=== PATIENT | female | born 1985 | race Hispanic/Latino ===

== ENCOUNTER 2021-02-12 01:22 | Emergency (ER) | payer OTHER ==
[2021-02-12 01:32] VITALS: BP 124/77
[2021-02-12 02:15] LABS: Basophils % (Auto) 0.2 % (0.0-1.8); Eosinophils # (Auto) 0.1 K/mm3 (0.0-0.4); Eosinophils % (Auto) 0.4 % (0.0-4.3); Hematocrit 45.3 % (30.3-42.9); Hemoglobin 15.8 gm/dl (10.1-14.3); Lymphocytes # (Auto) 1.2 K/mm3 (1.2-5.4); Lymphocytes % (Auto) 5.9 % (13.4-35.0); Mean Corpuscular HGB Conc 35 % (30-34); Mean Corpuscular Volume 89 fl (79-97); Monocytes # (Auto) 0.8 K/mm3 (0.0-0.8); Monocytes % (Auto) 4.2 % (0.0-7.3); Platelet Count 211 K/mm3 (140-440); Red Blood Count 5.06 M/mm3 (3.65-5.03); Red Cell Distribution Width 13.4 % (13.2-15.2)
[2021-02-12 02:27] LABS: BUN/Creatinine Ratio 16; Blood Urea Nitrogen 11 mg/dL (7-17); Calcium 10.5 mg/dL (8.4-10.2); Hemolysis Index 9
[2021-02-12] MEDS ORDERED: ONDANSETRON 4 MG/2 ML INJ IV ONE (03:29)
[2021-02-12] MEDS ORDERED: SODIUM CHLORIDE 0.9% 1000 ML 1,000 ML IV ONE (03:29)
[2021-02-12] MEDS ORDERED: FAMOTIDINE 20 MG/2 ML INJ IV ONE (03:35)
[2021-02-12] MEDS ORDERED: MORPHINE 4 MG/1 ML INJ IV ONE (03:35)
--- NOTE | 2021-02-12 04:00 | XRay Report ---
CHEST 1 VIEW INDICATION / CLINICAL INFORMATION: Chest pain. FINDINGS: SUPPORT DEVICES: None. HEART / MEDIASTINUM: No significant abnormality. LUNGS / PLEURA: No significant pulmonary or pleural abnormality. No pneumothorax. ADDITIONAL FINDINGS: No significant additional findings. IMPRESSION: 1. No acute findings. Signer Name: Tin Leahy MD Signed: 02/12/2021 3:56 AM Workstation Name: [id number]
[2021-02-12 04:33] LABS: Alanine Aminotransferase < 5 units/L (7-56); Albumin < 0.2 g/dL (3.9-5); Bilirubin,Direct < 0.2 mg/dL (0-0.2)
--- NOTE | 2021-02-12 05:19 | Emergency Department Report ---
ED N/V/D HPI - General Chief complaint: Dizziness Stated complaint: SOB,VOMITING,DIZZINESS,HEART RACING Source: patient Mode of arrival: Ambulatory Limitations: No Limitations - History of Present Illness Initial comments: Patient is a 35-year-old white female with no past medical history presents to the ED with complaint of acute onset persistent intractable nausea and vomiting and diffuse abdominal pain for over 12 hours. Patient states that the last meal she ate was from a restaurant about 24 hours ago. Patient states that in the last 12 hours she has not been able to keep anything down because of intractable nausea and vomiting and worsening pain. Patient states that she also felt lightheaded with a headache and felt that her heart was also racing. Patient also complains of sore throat and burning chest pain after multiple vomiting episodes. Patient denies diarrhea, dysuria, urinary frequency and urgency, chest pain, shortness of breath, dizziness, syncope, palpitations, change in vision, vaginal bleeding, vaginal discharge, low back pain, fever and chills. MD complaint: nausea, vomiting, abdominal pain (Diffuse) -: Sudden, hour(s) (>12) Description of Vomiting: food contents, watery Associated Abdominal Pain: Yes (Diffuse) Location: diffuse Radiation: none Severity: severe Pain Scale: 7 Quality: cramping, aching, sharp Consistency: constant Improves with: none Worsens with: eating, vomiting Context: possible food poisoning Associated Symptoms: denies other symptoms, myalgias, headaches, loss of appetite, malaise, nausea/vomiting, other (Lightheadedness). denies: chest pain, cough, diaphoresis, fever/chills, rash, dysuria, shortness of breath, syncope, weakness - Related Data Previous Rx's Medication Instructions Recorded Last Taken Type Dicyclomine [Bentyl] 20 mg PO Q6H PRN #30 tablet 02/12/21 Unknown Rx Famotidine [Pepcid] 20 mg PO BID #40 tablet 02/12/21 Unknown Rx Ondansetron [Zofran Odt] 4 mg PO Q6HR PRN #20 tab.rapdis 02/12/21 Unknown Rx Allergies Allergy/AdvReac Type Severity Reaction Status Date / Time No Known Allergies Allergy Unverified 02/12/21 01:48 ED Review of Systems ROS: Stated complaint: SOB,VOMITING,DIZZINESS,HEART RACING Other details as noted in HPI Constitutional: malaise, weakness. denies: chills, fever Eyes: denies: eye pain, eye discharge, vision change ENT: denies: ear pain, throat pain Respiratory: denies: cough, shortness of breath, wheezing Cardiovascular: denies: chest pain, palpitations Endocrine: no symptoms reported Gastrointestinal: abdominal pain, nausea, vomiting. denies: diarrhea Genitourinary: denies: urgency, dysuria, discharge Musculoskeletal: denies: back pain, joint swelling, arthralgia Skin: denies: rash, lesions Neurological: denies: headache, weakness, paresthesias Psychiatric: anxiety. denies: depression Hematological/Lymphatic: denies: easy bleeding, easy bruising ED Past Medical Hx - Past Medical History Previous Medical History?: No - Surgical History Past Surgical History?: Yes Additional Surgical History: Right Knee - Social History Smoking Status: Never Smoker Substance Use Type: None - Medications Home Medications: Home Medications Medication Instructions Recorded Confirmed Last Taken Type Dicyclomine [Bentyl] 20 mg PO Q6H PRN #30 tablet 02/12/21 Unknown Rx Famotidine [Pepcid] 20 mg PO BID #40 tablet 02/12/21 Unknown Rx Ondansetron [Zofran Odt] 4 mg PO Q6HR PRN #20 tab.rapdis 02/12/21 Unknown Rx ED Physical Exam - General Limitations: No Limitations General appearance: alert, in no apparent distress - Head Head exam: Present: atraumatic, normocephalic, normal inspection - Eye Eye exam: Present: normal appearance, PERRL, EOMI Pupils: Present: normal accommodation - ENT ENT exam: Present: normal exam, normal orophraynx, mucous membranes moist, TM's normal bilaterally, normal external ear exam - Neck Neck exam: Present: normal inspection, full ROM - Respiratory Respiratory exam: Present: normal lung sounds bilaterally. Absent: respiratory distress, wheezes, rales, rhonchi, chest wall tenderness, accessory muscle use, decreased breath sounds, prolonged expiratory - Cardiovascular Cardiovascular Exam: Present: normal rhythm, tachycardia, normal heart sounds. Absent: systolic murmur, diastolic murmur, rubs, gallop - GI/Abdominal GI/Abdominal exam: Present: soft, tenderness (Palpable diffuse abdominal tenderness), normal bowel sounds. Absent: guarding, rebound, hyperactive bowel sounds, hypoactive bowel sounds, organomegaly, mass - Bi-manual exam: Present: other (Pelvic exam deferred at this time) - Extremities Exam Extremities exam: Present: normal inspection, full ROM, normal capillary refill. Absent: tenderness, joint swelling - Back Exam Back exam: Present: normal inspection, full ROM. Absent: tenderness, CVA tenderness (R), CVA tenderness (L), muscle spasm, paraspinal tenderness, vertebral tenderness - Neurological Exam Neurological exam: Present: alert, oriented X3, CN II-XII intact, normal gait, reflexes normal - Psychiatric Psychiatric exam: Present: normal affect, normal mood, anxious - Skin Skin exam: Present: warm, dry, intact, normal color. Absent: rash ED Course Vital Signs 02/12/21 02/12/21 02/12/21 01:30 03:52 05:31 Temperature 98.3 F 99.0 F Pulse Rate 121 H 64 Respiratory 12 18 16 Rate Blood Pressure 124/77 O2 Sat by Pulse 98 100 Oximetry ED Medical Decision Making - Lab Data Result diagrams: 02/12/21 01:57 02/12/21 01:57 - Radiology Data Radiology results: report reviewed, image reviewed [facility] [address] [place] [address] Cat Scan Report Signed Patient: RYAN COULTER MR#: [id number] : 1985 Acct:[id number] Age/Sex: 35 / F ADM Date: 02/12/21 Loc: ED Attending Dr: Ordering Physician: WEST NIELSEN Date of Service: 02/12/21 Procedure(s): CT abdomen pelvis w con Accession Number(s): [id number] cc: WEST NIELSEN CT ABDOMEN AND PELVIS WITH IV CONTRAST INDICATION: Abdominal pain, nausea, vomiting. COMPARISON: None available. TECHNIQUE: Axial CT images were obtained through the abdomen and pelvis after 100 mL IV contrast. All CT scans at this location are performed using CT dose reduction for ALARA by means of automated exposure control. FINDINGS -- ABDOMEN: Lung Bases: No acute abnormality. Liver: Normal. Gallbladder: Normal. Bile Ducts: Normal. Pancreas: Normal. Spleen: Normal. Adrenals: Normal. Right Kidney and Proximal Ureter: Normal. Left Kidney and Proximal Ureter: Normal. Stomach and Bowel: Normal. Lymph Nodes: No significant adenopathy. Aorta: No significant abnormality. IVC: Normal. Additional Findings: None. FINDINGS -- PELVIS: Urinary Bladder and Distal Ureters: Normal. Reproductive Organs: No acute abnormality. Appendix: Normal. Bowel: No acute abnormality. Free Fluid: None. Lymph Nodes: No significant adenopathy. Additional Findings: None. Skeletal System: No acute abnormality. IMPRESSION: 1. No acute process in the abdomen or pelvis. Signer Name: Tin Leahy MD Signed: 02/12/2021 5:48 AM Workstation Name: [id number] Transcribed By: DAVID Dictated By: Tin Leahy MD Electronically Authenticated By: Tin Leahy MD Signed Date/Time: 02/12/21547 DD/ 6 TD/TT: - Medical Decision Making This is a 35-year-old white female with no past medical history presents to the ED with complaint of acute onset persistent intractable nausea and vomiting and diffuse abdominal pain for over 12 hours. Patient states that the last meal she ate was from a restaurant about 24 hours ago. Patient states that in the last 12 hours she has not been able to keep anything down because of intractable nausea and vomiting and worsening pain. Patient states that she also felt lightheaded with a headache and felt that her heart was also racing. Patient also complains of sore throat and burning chest pain after multiple vomiting e pisodes. In the ED, patient is alert and oriented x3 and is not in any distress, anxious, tachycardic but afebrile in triage. Patient was treated for nausea and vomiting with antiemetics, also treated with antacids, normal saline 1 L IV bolus x1 and pain medications. Lab test results were reviewed and showed acute leukocytosis of 20,100, mild hyponatremia 135 mmol/L, hyperglycemia 129 mg/dL and total bilirubin of 1.50. The rest of the lab test results were nonactionable. On reevaluation, patient's pain is well controlled with medication. Patient was able to drink fluids in the ED with no difficulty and tachycardia also resolved in the ED. the abdomen pelvis CT scan with contrast showed no acute abnormalities. On reevaluation, patient is hemodynamically stable, tachycardia resolved and patient passed oral fluid challenge in the ED. Patient symptoms are likely due to a viral gastroenteritis following food consumption from a restaurant. Patient was therefore discharged home on a ntiemetics, antacids and antispasmodic medications. Patient is advised to maintain a clear liquid diet for 12 to 24 hours and to take medications with food, drink plenty of fluids and follow-up with her primary care physician in 3 to 5 days for reevaluation. Patient was advised return to the ED immediately if symptoms get worse. - Differential Diagnosis GERD; gastroenteritis; dehydration; anxiety; cholelithiasis; UTI Critical care attestation.: If time is entered above; I have spent that time in minutes in the direct care of this critically ill patient, excluding procedure time. ED Disposition Clinical Impression: Intractable nausea and vomiting, Generalized abdominal pain, Dehydration, Viral gastroenteritis GERD (gastroesophageal reflux disease) Qualifiers: Esophagitis presence: esophagitis presence not specified Qualified Code(s): K21.9 - Gastro-esophageal reflux disease without esophagitis Disposition: TO HOME OR SELFCARE Is pt being admited?: No Does the pt Need Aspirin: No Condition: Stable Instructions: Viral Gastroenteritis, Adult, [id number], Nausea and Vomiting, Adult, [id number], Dehydration, Adult, [id number], Gastroesophageal Reflux Disease, Adult, [id number] Additional Instructions: All lab test results were reviewed and showed acute leukocytosis of 20,100, hyperglycemia 129 mg/dL and mild hyponatremia 135 mmol/L. Abdomen pelvis CT scan with contrast showed no acute abnormalities. Your symptoms are likely due to a viral gastroenteritis causing intractable nausea and vomiting. Therefore maintain a clear liquid diet for 12 to 24 hours, doing plenty fluids, take medication as needed for nausea and vomiting and antacids. Follow-up with your primary care physician in 3 to 5 days for reevaluation or return to the ED im mediately if symptoms get worse. Prescriptions: Dicyclomine [Bentyl] 20 mg PO Q6H PRN #30 tablet PRN Reason: Abdominal pain Famotidine [Pepcid] 20 mg PO BID #40 tablet Ondansetron [Zofran Odt] 4 mg PO Q6HR PRN #20 tab.rapdis PRN Reason: Nausea And Vomiting Referrals: [facility] [Provider Group] - 3-5 Days Forms: Work/School Release Form(ED) Time of Disposition: 05:22 Print Language: TURKMEN
--- NOTE | 2021-02-12 05:53 | Cat Scan Report ---
CT ABDOMEN AND PELVIS WITH IV CONTRAST INDICATION: Abdominal pain, nausea, vomiting. COMPARISON: None available. TECHNIQUE: Axial CT images were obtained through the abdomen and pelvis after 100 mL IV contrast. All CT scans a t this location are performed using CT dose reduction for ALARA by means of automated exposure contro l. FINDINGS -- ABDOMEN: Lung Bases: No acute abnormality. Liver: Normal. Gallbladder: Normal. Bile Ducts: Normal. Pancreas: Normal. Spleen: Normal. Adrenals: Normal. Right Kidney and Proximal Ureter: Normal. Left Kidney and Proximal Ureter: Normal. Stomach and Bowel: Normal. Lymph Nodes: No significant adenopathy. Aorta: No significant abnormality. IVC: Normal. Additional Findings: None. FINDINGS -- PELVIS: Urinary Bladder and Distal Ureters: Normal. Reproductive Organs: No acute abnormality. Appendix: Normal. Bowel: No acute abnormality. Free Fluid: None. Lymph Nodes: No significant adenopathy. Additional Findings: None. Skeletal System: No acute abnormality. IMPRESSION: 1. No acute process in the abdomen or pelvis. Signer Name: Tin Leahy MD Signed: 02/12/2021 5:48 AM Workstation Name: [id number]
[2021-02-12 05:59] LABS: Bacteria,Urine 1+ /HPF (Negative); Bilirubin,Urine NEG (Negative); Blood,Urine NEG (Negative); Color,Urine Yellow (Yellow); Mucus,Urine FEW /HPF; Urobilinogen,Urine < 2.0 mg/dL (<2.0)
--- NOTE | 2021-02-13 13:14 | Electrocardiograph Report ---
[facility] Test Date: 2021-02-12 Test Time: 01:34:28 Pat Name: RYAN COULTER Department: Room: Gender: F Craniologist: : 1985 Requested By: GARY HOLLAND Order Number: [id number] Reading MD: Arcadio Han Measurements Intervals [place] Rate: 61 P: 54 IN: 110 QRS: 57 QRSD: 85 T: 51 QT: 398 QTc: 401 Interpretive Statements Sinus rhythm No previous ECG available for comparison Electronically Signed On 02-13-2021 13:13:48 EDT by Arcadio Han
== END 2021-02-12 06:26 | disposition home or self-care (01) ==
LOC: ED 01:22
DX: A08.4 Viral intestinal infection, unspecified (principal); R11.2 Nausea with vomiting, unspecified; R10.84 Generalized abdominal pain; E86.0 Dehydration; K21.9 Gastro-esophageal reflux disease without esophagitis; Z79.899 Other long term (current) drug therapy; Z98.890 Other specified postprocedural states
CPT/HCPCS: 36415; 71045; 74177; 80048; 80076; 81001; 83690; 84484; 84703; 85025; 93005; 96361; 96374; 96375; 99284; J2270; J2405; J7030; Q9967

== ENCOUNTER 2021-12-19 17:10 | Emergency (ER) | payer OTHER ==
[2021-12-19 17:35] VITALS: BP 127/59
[2021-12-19 21:24] LABS: Bilirubin,Urine NEG (Negative); Blood,Urine MOD (Negative); Color,Urine Yellow (Yellow); HCG Qualitative,Urine Negative (Negative); Mucus,Urine FEW /HPF; Urobilinogen,Urine < 2.0 mg/dL (<2.0)
[2021-12-19 21:28] LABS: Hematocrit 44.7 % (30.3-42.9); Hemoglobin 14.8 gm/dl (10.1-14.3); Mean Corpuscular HGB Conc 33 % (30-34); Mean Corpuscular Volume 92 fl (79-97); Platelet Count 238 K/mm3 (140-440); Red Blood Count 4.87 M/mm3 (3.65-5.03); Red Cell Distribution Width 13.2 % (13.2-15.2)
[2021-12-19 21:45] LABS: Alanine Aminotransferase 17 units/L (7-56); Albumin 5.1 g/dL (3.9-5); Blood Urea Nitrogen 11 mg/dL (7-17); Hemolysis Index 6
[2021-12-19 21:46] LABS: BUN/Creatinine Ratio 18
[2021-12-19] MEDS ORDERED: HYDROmorphone 1 MG/1 ML INJ IV ONE (22:03)
[2021-12-19] MEDS ORDERED: SODIUM CHLORIDE 0.9% 1000 ML 1,000 ML IV ONE (22:03)
[2021-12-19] MEDS ORDERED: ONDANSETRON 4 MG/2 ML INJ IV ONE (22:03)
--- NOTE | 2021-12-19 22:07 | Emergency Department Report ---
ED General Adult HPI - General Chief complaint: Abdominal Pain Stated complaint: ABD PAIN/NAUSEA PUI?: No Time Seen by Provider: 12/19/21 21:37 Source: patient, RN notes reviewed, old records reviewed Mode of arrival: Ambulatory Limitations: No Limitations - History of Present Illness Initial comments: This patient is a pleasant and cooperative 36-year-old female, with a long-term history of marijuana consumption, presenting to the ER today with a complaint of recurrent right lower quadrant and right flank pain, associate with multiple episodes of nausea and vomiting. Positive relief with taking a hot bath and hot shower. Denies dysuria, fevers and chills. Feels very anxious. Has presented to this hospital in the past for similar symptoms. Denies history and possibility of STI. Reports that she has had multiple evaluations for this in multiple hospitals, and has not been able to receive definitive diagnosis. -: Sudden Location: back, abdomen Radiation: back, abdomen Severity scale (0 -10): 10 Quality: stabbing, aching Consistency: constant Improves with: other (Taking a hot bath and hot shower) Worsens with: movement, other (Palpation) - Related Data Previous Rx's Medication Instructions Recorded Last Taken Type Dicyclomine [Bentyl] 20 mg PO Q6H PRN #30 tablet 02/12/21 Unknown Rx Famotidine [Pepcid] 20 mg PO BID #40 tablet 02/12/21 Unknown Rx Ondansetron [Zofran Odt] 4 mg PO Q6HR PRN #20 tab.rapdis 02/12/21 Unknown Rx Acetaminophen [Non-Aspirin Extra 500 mg PO Q6HR PRN #30 tablet 12/19/21 Unknown Rx Strength] Steven Root [Steven] 250 mg PO QID PRN #30 capsule 12/19/21 Unknown Rx Ketorolac [Toradol] 10 mg PO Q6H PRN #20 tablet 12/19/21 Unknown Rx Metoclopramide [Reglan] 10 mg PO QID PRN #30 tablet 12/19/21 Unknown Rx Morphine Sulfate [Morphine Sulfate 7.5 mg PO Q6HR PRN #10 tablet 12/19/21 Unknown Rx IR] Promethazine [Phenergan SUPPOS] 50 mg MI Q6H PRN #15 supp 12/19/21 Unknown Rx Tamsulosin [Flomax] 0.4 mg PO QDAY #30 cap 12/19/21 Unknown Rx Allergies Allergy/AdvReac Type Severity Reaction Status Date / Time No Known Allergies Allergy Unverified 02/12/21 01:48 ED Review of Systems ROS: Stated complaint: ABD PAIN/NAUSEA Other details as noted in HPI Constitutional: malaise, weakness. denies: fever Eyes: denies: eye discharge ENT: denies: epistaxis Respiratory: denies: cough Cardiovascular: denies: chest pain Gastrointestinal: abdominal pain, nausea, vomiting. denies: melena, hematochezia Genitourinary: denies: urgency, dysuria Musculoskeletal: back pain Neurological: weakness Psychiatric: anxiety Hematological/Lymphatic: denies: easy bleeding ED Past Medical Hx - Surgical History Additional Surgical History: Right Knee - Social History Smoking Status: Never Smoker Substance Use Type: None - Medications Home Medications: Home Medications Medication Instructions Recorded Confirmed Last Taken Type Dicyclomine [Bentyl] 20 mg PO Q6H PRN #30 tablet 02/12/21 Unknown Rx Famotidine [Pepcid] 20 mg PO BID #40 tablet 02/12/21 Unknown Rx Ondansetron [Zofran Odt] 4 mg PO Q6HR PRN #20 tab.rapdis 02/12/21 Unknown Rx Acetaminophen [Non-Aspirin Extra 500 mg PO Q6HR PRN #30 tablet 12/19/21 Unknown Rx Strength] Steven Root [Steven] 250 mg PO QID PRN #30 capsule 12/19/21 Unknown Rx Ketorolac [Toradol] 10 mg PO Q6H PRN #20 tablet 12/19/21 Unknown Rx Metoclopramide [Reglan] 10 mg PO QID PRN #30 tablet 12/19/21 Unknown Rx Morphine Sulfate [Morphine Sulfate 7.5 mg PO Q6HR PRN #10 tablet 12/19/21 Unknown Rx IR] Promethazine [Phenergan SUPPOS] 50 mg MI Q6H PRN #15 supp 12/19/21 Unknown Rx Tamsulosin [Flomax] 0.4 mg PO QDAY #30 cap 12/19/21 Unknown Rx ED Physical Exam - General Limitations: No Limitations General appearance: alert, anxious, obese - Head Head exam: Present: atraumatic, normocephalic - Eye Eye exam: Present: normal appearance, EOMI. Absent: nystagmus - ENT ENT exam: Present: normal exam, normal orophraynx, mucous membranes moist, normal external ear exam - Neck Neck exam: Present: normal inspection, full ROM. Absent: tenderness, meningismus - Respiratory Respiratory exam: Present: normal lung sounds bilaterally. Absent: respiratory distress, wheezes, rales, rhonchi, stridor, decreased breath sounds - Cardiovascular Cardiovascular Exam: Present: regular rate, normal rhythm, normal heart sounds. Absent: bradycardia, tachycardia, irregular rhythm, systolic murmur, diastolic murmur, rubs, gallop - GI/Abdominal GI/Abdominal exam: Present: soft, tenderness, normal bowel sounds, other (There is suprapubic and right lower quadrant tenderness to deep palpation). Absent: distended, guarding, rebound, rigid, pulsatile mass - External exam: Present: normal external exam, other (Chaperoned by Melanie Mantilla) Speculum exam: Present: normal speculum exam. Absent: vaginal discharge, vaginal bleeding, foreign body, tissue, laceration Bi-manual exam: Present: normal bi-manual exam, other (Minimal right-sided adnexal tenderness). Absent: cervical motion tendernes, adnexal mass, uterine enlargement, uterine tenderness - Extremities Exam Extremities exam: Present: normal inspection, full ROM, other (2+ pulses noted in the bilateral upper and lower extremities. There is no palpable cord. negative Homans sign. Muscular compartments are soft. The pelvis is stable.). Absent: pedal edema, calf tenderness - Back Exam Back exam: Present: normal inspection, full ROM. Absent: tenderness, CVA tenderness (R), CVA tenderness (L), paraspinal tenderness, vertebral tenderness - Neurological Exam Neurological exam: Present: alert, oriented X3, other (No facial droop. Tongue midline. Extraocular movements intact bilaterally. Facial sensation intact to light touch in V1, V2, V3 distribution bilaterally. 5 and a 5 strength in 4 extremities. Sensation intact to light touch in 4 extremities.). Absent: motor sensory deficit - Psychiatric Psychiatric exam: Present: anxious - Skin Skin exam: Present: warm, dry, intact, normal color. Absent: rash ED Course Vital Signs 12/19/21 17:34 Temperature 97.7 F Pulse Rate 91 H Respiratory 20 Rate Blood Pressure 127/59 [Right] O2 Sat by Pulse 100 Oximetry - Reevaluation(s) Reevaluation #1: 05/02/22 22:29 Differential diagnosis, including but not limited to: Cannabinoid hyperemesis syndrome, renal colic, appendicitis, PID Assessment and plan: 36-year-old female, who is afebrile, with reassuring vital signs, with a history of marijuana use, relief with taking a hot bath and hot shower, presenting with recurrent abdominal pain, nausea and vomiting. Patient has presented to this hospital in the past with similar symptoms. Highly suspicious for cannabinoid hyperemesis syndrome. Patient educated as to the natural history of this entity, and counseled to immediately discontinue marij uana consumption. I suspect that leukocytosis of 19,000 is a stress reaction. However, we will perform pelvic examination, obtain CT scan of the abdomen pelvis, and treat her symptoms. She denies irritative and obstructive urinary symptoms. Discussed plan of care with the patient. She is agreeable to the plan of care. Reassess after pelvic examination, and CT scan of the abdomen pelvis 12/19/21 23:15 CT scan abdomen pelvis demonstrates right-sided UVJ stone. Pelvic examination not suggestive of PID. Patient updated on CT scan findings. She endorses understanding. Currently awaiting pain medication and nausea medication. She is afebrile, with reassuring vital signs, UA not consistent with urinary tract infection, and she has no active vomiting. Anticipate discharge with outpatient follow-up. Extensive discussion had with patient and significant other at bedside, with patient's permission. Discussed natural history of kidney stones, need to drink water, and modified diet and lifestyle. 12/19/21 23:49 On final reassessment, patient endorses marked improvement in symptoms, and readiness for discharge. Anion gap reviewed and appreciated, likely secondary to dehydration, likely secondary to nausea and vomiting, likely secondary to kidney stone. Patient not actively vomiting at this time, and tolerating liquid feeds, and is reliable to follow-up with outpatient . She endorses reliability to self hydrate and closely follow-up ED Medical Decision Making - Lab Data Result diagrams: 12/19/21 21:08 12/19/21 21:08 Vital Signs 12/19/21 17:34 Temperature 97.7 F Pulse Rate 91 H Respiratory 20 Rate Blood Pressure 127/59 [Right] O2 Sat by Pulse 100 Oximetry Lab Results 12/19/21 12/19/21 12/19/21 Range/Units 21:00 21:08 21:08 WBC 19.0 H (4.5-11.0) K/mm3 RBC 4.87 (3.65-5.03) M/mm3 Hgb 14.8 H (10.1-14.3) gm/dl Hct 44.7 H (30.3-42.9) % MCV 92 (79-97) fl MCH 30 (28-32) pg MCHC 33 (30-34) % RDW 13.2 (13.2-15.2) % Plt Count 238 (140-440) K/mm3 Seg Neutrophils % Production Service Manager Sodium 141 (137-145) mmol/L Potassium 3.6 (3.6-5.0) mmol/L Chloride 101.4 (98-107) mmol/L Carbon Dioxide 20 L (22-30) mmol/L Anion Gap 23 mmol/L BUN 11 (7-17) mg/dL Creatinine 0.6 (0.6-1.2) mg/dL Estimated GFR > 60 ml/min BUN/Creatinine Ratio 18 % Glucose 115 H (65-100) mg/dL Calcium 10.0 (8.4-10.2) mg/dL Total Bilirubin 0.80 (0.1-1.2) mg/dL AST 20 (5-40) units/L ALT 17 (7-56) units/L Alkaline Phosphatase 57 (35-129) units/L Total Protein 7.8 (6.3-8.2) g/dL Albumin 5.1 H (3.9-5) g/dL Albumin/Globulin Ratio 1.9 % Urine Color (Yellow) Urine Turbidity (Clear) Urine pH (5.0-7.0) Ur Specific [place] (1.003-1.030) Urine Protein (Negative) mg/dL Urine Glucose (UA) (Negative) mg/dL Urine Ketones (Negative) mg/dL Urine Blood (Negative) Urine Nitrite (Negative) Urine Bilirubin (Negative) Urine Urobilinogen (<2.0) mg/dL Ur Leukocyte Esterase (Negative) Urine WBC (Auto) (0.0-6.0) /HPF Urine RBC (Auto) (0.0-6.0) /HPF U Epithel Cells (Auto) (0-13.0) /HPF Urine Mucus /HPF Urine HCG, Qual (Negative) Urine Opiates Screen Presumptive negative Urine Methadone Screen Presumptive negative Ur Barbiturates Screen Presumptive negative Ur Phencyclidine Scrn Presumptive negative Ur Amphetamines Screen Presumptive negative U Benzodiazepines Scrn Presumptive negative Urine Cocaine Screen Presumptive negative U Marijuana (THC) Screen Presumptive positive 12/19/21 12/19/21 Range/Units Unknown Unknown WBC (4.5-11.0) K/mm3 RBC (3.65-5.03) M/mm3 Hgb (10.1-14.3) gm/dl Hct (30.3-42.9) % MCV (79-97) fl MCH (28-32) pg MCHC (30-34) % RDW (13.2-15.2) % Plt Count (140-440) K/mm3 Seg Neutrophils % Sodium (137-145) mmol/L Potassium (3.6-5.0) mmol/L Chloride (98-107) mmol/L Carbon Dioxide (22-30) mmol/L Anion Gap mmol/L BUN (7-17) mg/dL Creatinine (0.6-1.2) mg/dL Estimated GFR ml/min BUN/Creatinine Ratio % Glucose (65-100) mg/dL Calcium (8.4-10.2) mg/dL Total Bilirubin (0.1-1.2) mg/dL AST (5-40) units/L ALT (7-56) units/L Alkaline Phosphatase (35-129) units/L Total Protein (6.3-8.2) g/dL Albumin (3.9-5) g/dL Albumin/Globulin Ratio % Urine Color Yellow (Yellow) Urine Turbidity Clear (Clear) Urine pH 6.0 (5.0-7.0) Ur Specific [place] 1.017 (1.003-1.030) Urine Protein 30 mg/dl (Negative) mg/dL Urine Glucose (UA) Neg (Negative) mg/dL Urine Ketones 20 (Negative) mg/dL Urine Blood Mod (Negative) Urine Nitrite Neg (Negative) Urine Bilirubin Neg (Negative) Urine Urobilinogen < 2.0 (<2.0) mg/dL Ur Leukocyte Esterase Neg (Negative) Urine WBC (Auto) 6.0 (0.0-6.0) /HPF Urine RBC (Auto) 12.0 (0.0-6.0) /HPF U Epithel Cells (Auto) 1.0 (0-13.0) /HPF Urine Mucus Few /HPF Urine HCG, Qual Negative (Negative) Urine Opiates Screen Urine Methadone Screen Ur Barbiturates Screen Ur Phencyclidine Scrn Ur Amphetamines Screen U Benzodiazepines Scrn Urine Cocaine Screen U Marijuana (THC) Screen - Radiology Data Radiology results: report reviewed, image reviewed CT ABDOMEN AND PELVIS WITH CONTRAST INDICATION / CLINICAL INFORMATION: Acute right-sided abdominal pain and flank pain. TECHNIQUE: Axial CT images were obtained through the abdomen and pelvis after 100 cc Omnipaque [address] scans at this location are performed using CT dose reduction for ALARA by means of automated exposure control. COMPARISON: CT abdomen and pelvis with contrast from 02/12/2021. FINDINGS: LOWER CHEST: No significant abnormality. LIVER: No significant abnormality. GALLBLADDER: No significant abnormality. BILE DUCTS: No significant abnormality. PANCREAS: No significant abnormality. SPLEEN: No significant ab normality. ADRENALS: No significant abnormality. RIGHT KIDNEY/ URETER: There is a mildly obstructive right UVJ stone measuring up to 5 mm on image 167 of series 2. No other significant abnormality. LEFT KIDNEY/URETER: No significant abnormality. STOMACH/SMALL BOWEL: No significant abnormality. COLON: Most of the colon is collapsed and not well evaluated. No acute abnormality is seen. APPENDIX: No significant abnormality. PERITONEUM: No free fluid. No free air. No fluid collection. LYMPH NODES: No significant adenopathy. VASCULATURE: No significant abnormality. URINARY BLADDER: No significant abnormality. REPRODUCTIVE ORGANS: No significant abnormality. ADDITIONAL FINDINGS: None. BONES: No significant abnormality IMPRESSION: Mildly obstructive 5 mm right UVJ stone. No other acute findings. Signer Name: Shaun Zapien MD Signed: 12/19/2021 9:52 PM Workstation Name: [id number] Critical care attestation.: If time is entered above; I have spent that time in minutes in the direct care of this critically ill patient, excluding procedure time. ED Disposition Clinical Impression: Right lower quadrant abdominal pain, Marijuana use, Calculus of ureterovesical junction (UVJ) Disposition: 01 HOME / SELF CARE / HOMELESS Is pt being admited?: No Does the pt Need Aspirin: No Condition: Good Instructions: Abdominal Pain (ED) Additional Instructions: Cultures were sent today, and results will be available in the next 3 to 5 days. Please have your primary care doctor contact the medical records department to obtain culture results. Patient is found to have have a right-sided kidney stone Please drink 6 cups of water per day. Please take the pain medication, nausea medication, and Flomax medication as directed. Discontinue marijuana consumption. Patient may take a hot bath or hot shower as often as as needed for pain relief, and may also apply hot sauce on the anterior abdominal wall which she can purchase at any supermarket, as needed for symptom relief. Please take the pain medication, nausea medication as needed and directed, avoid consumption of alcohol, tobacco, smoke products, heavy and spicy foods. Follow-up with a urologist, such as those at [facility], within the next week. Patient may take the steven and Reglan tablets as needed for nausea and vomiting, and use the Phenergan suppository for intractable nausea and vomiting not relieved by oral steven and/or Reglan tablets Please take the pain medication, nausea medication as needed and directed Prescriptions: Tamsulosin [Flomax] 0.4 mg PO QDAY #30 cap Steven Root [Steven] 250 mg PO QID PRN #30 capsule PRN Reason: Nausea Morphine Sulfate [Morphine Sulfate IR] 7.5 mg PO Q6HR PRN #10 tablet PRN Reason: Pain , Severe (7-10) Acetaminophen [Non-Aspirin Extra Strength] 500 mg PO Q6HR PRN #30 tablet PRN Reason: Pain , Severe (7-10) Promethazine [Phenergan SUPPOS] 50 mg MI Q6H PRN #15 supp PRN Reason: Nausea Metoclopramide [Reglan] 10 mg PO QID PRN #30 tablet PRN Reason: Nausea Ketorolac [Toradol] 10 mg PO Q6H PRN #20 tablet PRN Reason: Pain Referrals: [facility] [Provider Group] - 3-5 Days [facility] [Provider Group] - 3-5 Days Forms: Work/School Release Form(ED)
[2021-12-19 22:14] LABS: Amphetamine Screen,Urine PRESUMPTIVE NEGATIVE; Benzodiazepines Screen,Urine PRESUMPTIVE NEGATIVE; Cannabinoid Screen,Urine PRESUMPTIVE POSITIVE; Cocaine Screen,Urine PRESUMPTIVE NEGATIVE; Methadone Screen,Urine PRESUMPTIVE NEGATIVE; Opiate Screen,Urine PRESUMPTIVE NEGATIVE
--- NOTE | 2021-12-19 22:56 | Cat Scan Report ---
CT ABDOMEN AND PELVIS WITH CONTRAST INDICATION / CLINICAL INFORMATION: Acute right-sided abdominal pain and flank pain. TECHNIQUE: Axial CT images were obtained through the abdomen and pelvis after 100 cc Omnipaque [address] scans at this location are performed using CT dose reduction for ALARA by means of automated exposure control. COMPARISON: CT abdomen and pelvis with contrast from 02/12/2021. FINDINGS: LOWER CHEST: No significant abnormality. LIVER: No significant abnormality. GALLBLADDER: No significant abnormality. BILE DUCTS: No significant abnormality. PANCREAS: No significant abnormality. SPLEEN: No significant abnormality. ADRENALS: No significant abnormality. RIGHT KIDNEY/URETER: There is a mildly obstructive right UVJ stone measuring up to 5 mm on image 167 of series 2. No other significant abnormality. LEFT KIDNEY/URETER: No significant abnormality. STOMACH/SMALL BOWEL: No significant abnormality. COLON: Most of the colon is collapsed and not well evaluated. No acute abnormality is seen. APPENDIX: No significant abnormality. PERITONEUM: No free fluid. No free air. No fluid collection. LYMPH NODES: No significant adenopathy. VASCULATURE: No significant abnormality. URINARY BLADDER: No significant abnormality. REPRODUCTIVE ORGANS: No significant abnormality. ADDITIONAL FINDINGS: None. BONES: No significant abnormality IMPRESSION: Mildly obstructive 5 mm right UVJ stone. No other acute findings. Signer Name: Shaun Zapien MD Signed: 12/19/2021 10:52 PM Workstation Name: [id number]
[2021-12-19] MEDS ORDERED: KETOROLAC 30 MG/1 ML INJ IV ONE (23:01)
[2021-12-20] MEDS ORDERED: ONDANSETRON 4 MG/2 ML INJ IV ONE (00:57)
[2021-12-20 01:33] LABS: Basophils % (Manual) 0 % (0.0-1.8); Eosinophils % (Manual) 0 % (0.0-4.3); Platelet Estimate Consistent w Auto; RBC Morphology Normal; Total Cells Counted 100
== END 2021-12-20 02:09 | disposition home or self-care (01) ==
LOC: ED 17:10
DX: N13.0 Hydronephrosis with ureteropelvic junction obstruction (principal); F12.90 Cannabis use, unspecified, uncomplicated; Z79.899 Other long term (current) drug therapy
CPT/HCPCS: 36415; 74177; 80053; 80307; 81001; 81025; 85007; 85025; 87210; 96361; 96374; 96375; 96376; 99284; J1170; J1885; J2405; J7030; Q9967